=== PATIENT | female | born 1950 | race Caucasian/White ===

== ENCOUNTER 2019-04-09 06:08 | Day surgery (SDC) | payer MEDICARE, OTHER ==
[~2019-04-09] VITALS: Ht 160 cm; Wt 76.8 kg
[2019-04-09] VITALS (14 sets, daily range): BP systolic 86–176; BP diastolic 46–85; PULSE 58–70; RESP 10–18; Ht 160 cm; Wt 76.8 kg
[~2019-04-09 06:08] MED LIST: CYCLOPENTOLATE 1% 2 ML OPH LEFT EYE SCH; DICLOFENAC 0.1% 2.5 ML OPH LEFT EYE SCH; IBUP-1542 PO; MOXIFLOXACIN 0.5% 3 ML OPH LEFT EYE SCH; PHENYLephrine 2.5% 15 ML OPH LEFT EYE SCH; SOD CHLORIDE 0.9% 1,000 ML IV SCH; TROPICAMIDE 1% 15 ML OPH LEFT EYE SCH
[2019-04-09] MEDS ORDERED: LIDOCAINE 1% (MPF) 10 ML INJ ONE (07:03)
[2019-04-09] MEDS ORDERED: TETRACAINE 0.5% 4 ML OPH ONE (07:04)
[2019-04-09] MEDS ORDERED: EPINEPHrine 1 MG INJ ONE (07:04)
[2019-04-09] MEDS ORDERED: TOBRAMYCIN/DEXAMETH 3.5 GM OPH OINT ONE (07:04)
[2019-04-09] MEDS ORDERED: MIDAZOLAM 1 MG/ML 2 ML INJ ONE (07:24)
[2019-04-09] MEDS ORDERED: FENTAnyl 50 MCG/ML VIAL ONE (07:24)
[2019-04-09] MEDS ORDERED: hydrALAzine 20 MG INJ ONE (07:34)
[2019-04-09] MEDS ORDERED: FENTAnyl 50 MCG/ML VIAL IV PRN ×3 (08:00)
[2019-04-09] MEDS ORDERED: hydrALAzine 20 MG INJ IV PRN (08:00)
[2019-04-09] MEDS ORDERED: OXYCODONE/ACETAMINOPHEN (5/325) TAB PO PRN ×2 (08:00)
[2019-04-09] MEDS ORDERED: ACETAMINOPHEN 500 MG TAB PO PRN (08:00)
[2019-04-09] MEDS ORDERED: LABETALOL HCL 20MG INJ IV PRN (08:00)
[2019-04-09] MEDS ORDERED: ONDANSETRON 4 MG INJ IV PRN (08:00)
== END 2019-04-09 09:55 | disposition home or self-care (01) ==
LOC: MERGE 06:08 → SDS 06:08
PROVIDERS: ATTEND Ophthalmology
DX: H25.12 Age-related nuclear cataract, left eye (principal); I10 Essential (primary) hypertension; E11.9 Type 2 diabetes mellitus without complications; E78.5 Hyperlipidemia, unspecified
CPT/HCPCS: 66984; 82962; J0171; J0360; J2250; J2405; J3010; V2632

== ENCOUNTER 2019-05-15 14:00 | Emergency (ER) | payer MEDICARE, OTHER ==
[~2019-05-15] VITALS: Ht 157.5 cm; Wt 72.7 kg
[~2019-05-15 14:00] MED LIST changes: -CYCLOPENTOLATE 1% 2 ML OPH LEFT EYE SCH; -DICLOFENAC 0.1% 2.5 ML OPH LEFT EYE SCH; -MOXIFLOXACIN 0.5% 3 ML OPH LEFT EYE SCH; -PHENYLephrine 2.5% 15 ML OPH LEFT EYE SCH; -SOD CHLORIDE 0.9% 1,000 ML IV SCH; -TROPICAMIDE 1% 15 ML OPH LEFT EYE SCH
[2019-05-15 14:04] VITALS: BP 108/77; PULSE 68; RESP 18; Ht 157.5 cm; Wt 72.7 kg
== END 2019-05-15 14:04 | disposition home or self-care (01) ==
LOC: FTE 14:00 → E/R 14:04
DX: S62.660A Nondisplaced fracture of distal phalanx of right index finger, initial encounter for closed fracture (principal); W18.39XA Other fall on same level, initial encounter; Y92.9 Unspecified place or not applicable
CPT/HCPCS: 73140